=== PATIENT | female | born 1985 | race African-American/Black ===

== ENCOUNTER 2016-07-08 19:59 | Emergency (ER) | payer OTHER ==
[~2016-07-08 19:59] MED LIST: FLEXERIL10 MG PO; IBU800 MG PO
[2016-07-08 20:18] VITALS: BP 112/67
--- NOTE | 2016-07-08 21:15 | ED NECK/BACK PAIN COMPLAINT ---
History of Present Illness General Chief Complaint: Low Back Pain/Injury Stated Complaint: LOWER BACK PAIN S/P FALL Source: patient, old records Exam Limitations: no limitations Vital Signs & Intake/Output Vital Signs & Intake/Output Vital Signs Date Time Temp Pulse Resp B/P Pulse O2 O2 Flow FiO2 Ox Delivery Rate 07/08 2134 100 Room Air 07/08 2017 97.0 90 22 112/67 98 Room Air Allergies Coded Allergies: NO KNOWN ALLERGIES (02/16/15) Reconcile Medications CYCLOBENZAPRINE HCL (Flexeril) 10 MG TAB 1 TAB PO Q8HR PRN MUSCLE SPASMS Cyclobenzaprine HCl 10 MG TABLET 1 TAB PO TID PRN spasm Ibuprofen (Ibu) 800 MG TAB 1 TAB PO Q8HR PRN PAIN Ibuprofen 600 MG TABLET 1 TAB PO TID PRN pain with food Tramadol HCl (Ultram) 50 MG TABLET 1 TAB PO Q6P PRN pain Triage Note: PER PT WHILE DRIVING GOT OUT OF WORK VAN AND HAD PAIN TO BACK SHOOTING PAIN DENIES INJURY DENIES TRAUMA. TOOK EXCEDRIN AND IBUPROFEN 800 MG WITHOUT EFFECT. LMP 06/24/16 Triage Nurses Notes Reviewed? yes : No Patient currently breastfeeds: No HPI: 30-year-old female here with complaints of right-sided low back pain that started suddenly while driving this afternoon. She does not recall any Injury. She has had pain exactly like this in the past and was seen here about a year and a half ago for same, I have reviewed these records. 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 She does not recall any injury that occurred today but she is having severe pain with stiffness in the right-sided low back that is more painful when she bends forward and rotates to the right side and side bends to the right side. She has no radiating pain, no nausea, no vomiting. No numbness or weakness in the extremities. (ALEXANDRE MORILLO,BENY) Past History Travel History Traveled to [place] past 21 day No Medical History Any Pertinent Medical History? 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 No (BENY HALL) Review of Systems Review of Systems Constitutional: Reports: see HPI. Eyes: Reports: no symptoms. Ears, Nose, Throat, Mouth: Reports: no symptoms. Respiratory: Reports: no symptoms. Cardiovascular: Reports: no symptoms. Gastrointestinal/Abdominal: Reports: no symptoms. Skin: Reports: no symptoms. Neurological/Psychological: Reports: no symptoms. All Other Systems: Reviewed and Negative (BENY HALL) Physical Exam Physical Exam Neck: normal inspection Comments: Well-developed well-nourished no apparent distress. HEENT: Atraumatic, extraocular motion intact Neck: Supple, no lymphadenopathy Back: Tenderness to the paravertebral musculature on the right side lower lumbar region with mild spasming noted. No midline tenderness. No deformity or signs of trauma. There is no rashes present. Range of motion is limited secondary to pain Straight leg raise is negative bilaterally. Bilateral lower extremities are neurovascularly intact with sensation and motor grossly intact. Gait is antalgic. Respiratory: No respiratory distress Abdomen: Soft nontender nondistended obese Extremities: No edema, full range of motion Neuro: Alert and oriented x3 Psych: Mood affect normal, normal memory normal judgment. Skin: Warm and dry, no rash on exposed skin (BENY HALL) Progress Differential Diagnosis: AAA, aortic dissection, C spine injury, carotid dissection, cauda equina syn, herniated disc, myofascial strain, pyelo/UTI, sciatica, spinal cord inj, thoracic outlet syn, T/L spine injury, ureterolithiasis Plan of Care: Orders Procedure Date/time Status XRY-LUMBOSACRAL SPINE AP & LAT 07/09 2111 Active Current Medications Sig/Benny Start time Last Medication Dose Stop Time Status Admin Ketorolac 30 MG ONCE ONE 07/08 2114 UNVr Tromethamine 07/09 2115 (Toradol) Diagnostic Imaging: Viewed by Me: Radiology Read. Discussed w/RAD: Radiology Read. Radiology Impression: PATIENT: LANDY WEINSTEIN PRESENT AGE: 30 PATIENT ACCOUNT NO: [id number] : 84 LOCATION: [facility] ORDERING PHYSICIAN: BENY MORILLO SERVICE DATE: 07/08/16-2111 EXAM TYPE: RAD - XRY-LUMBOSACRAL SPINE AP & LAT EXAMINATION: XR LUMBOSACRAL SPINE CLINICAL INFORMATION: Right-sided low back pain. COMPARISON: None TECHNIQUE: AP and lateral views of the lumbosacral spine were obtained. FINDINGS: There is moderate disc space narrowing and endplate spurring at L5-S1 with facet arthropathy. Milder loss of disc height is also evident at L4-L5. The remaining disc spaces appear normal. No compression fractures or subluxations are identified. There is a rightward curvature of the lumbar spine. The imaged bony pelvis is unremarkable. IMPRESSION: Moderate degenerative disc disease at L5-S1 with milder spondylitic changes at L4-L5. 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 Patient follow-up with neurosurgery (BENY HALL) Departure Departure Disposition: HOME OR SELF CARE Condition: Stable Clinical Impression Primary Impression: Lumbar degenerative disc disease Secondary Impressions: Muscle spasm of back Referrals: SUSHANT WYATT MD (PCP/Family) BALJIT KERN MD Additional Instructions: Take medications for pain, spasm and inflammation as needed. Rest, warm compresses, gentle stretching. Follow-up with neurosurgeon for further evaluation and treatment Watch for worsening symptoms of pain, numbness or weakness down the leg, return with any concerns. Departure Forms: Customer Survey General Discharge Information Prescriptions: Current Visit Scripts Ibuprofen 1 TAB PO TID PRN pain #30 TAB with food Cyclobenzaprine HCl 1 TAB PO TID PRN spasm #15 TAB Tramadol HCl (Ultram) 1 TAB PO Q6P PRN pain #12 TAB (BENY HALL) PA/NURSERY SCHOOL ATTENDANT Co-Sign Statement Statement: ED Attending supervision documentation- [] I saw and evaluated the patient. I have also reviewed all the pertinent lab results and diagnostic results. I agree with the findings and the plan of care as documented in the PA's/NURSERY SCHOOL ATTENDANT's documentation. x I have reviewed the ED Record and agree with the PA's/NURSERY SCHOOL ATTENDANT's documentation. [] Additions or exceptions (if any) to the PAs/NURSERY SCHOOL ATTENDANT's note and plan are summarized below: [] (JA MCGRAW,MINDI)
--- NOTE | 2016-07-08 21:42 | RADIOLOGY REPORT ---
EXAMINATION: XR LUMBOSACRAL SPINE CLINICAL INFORMATION: Right-sided low back pain. COMPARISON: None TECHNIQUE: AP and lateral views of the lumbosacral spine were obtained. FINDINGS: There is moderate disc space narrowing and endplate spurring at L5-S1 with facet arthropathy. Milder loss of disc height is also evident at L4-L5. The remaining disc spaces appear normal. No compression fractures or subluxations are identified. There is a rightward curvature of the lumbar spine. The imaged bony pelvis is unremarkable. IMPRESSION: Moderate degenerative disc disease at L5-S1 with milder spondylitic changes at L4-L5.
[2016-07-08] MEDS ORDERED: CYCLOBENZAPRINE10 M1 PO (21:57)
[2016-07-08] MEDS ORDERED: ULTRAM50 M1 PO (21:57)
[2016-07-08] MEDS ORDERED: IBUPROFEN600 M1 PO (21:57)
== END 2016-07-08 22:30 ==
LOC: ERH 19:59
DX: M51.36 Other intervertebral disc degeneration, lumbar region (principal); M62.830 Muscle spasm of back
CPT/HCPCS: 72100; 96372; J1885